=== PATIENT | female | born 1995 | race Caucasian/White ===

== ENCOUNTER 2017-05-03 12:48 | Outpatient (CLI) | payer SELFPAY ==
[2017-05-03 13:13] VITALS: BP 130/83
--- NOTE | 2017-05-03 14:59 | Ultrasound Report ---
ULTRASOUND BIOPHYSICAL PROFILE: History: well being Technique: Transabdominal ultrasound with Doppler interrogation. 2 - breathing movements 2 - movements 2 - posture and tone 2 - Qualitative amniotic fluid volume 8 - TOTAL SCORE OF POSSIBLE 8 Heart Rate (bpm) 140
--- NOTE | 2017-05-04 09:50 | Ultrasound Report ---
OB LIMITED INDICATION: well being. COMPARISON: None similar at this institution. TECHNIQUE: Transabdominal grayscale ultrasound with Doppler interrogation. Gestation: Crump Position: Cephalic Amniotic Fluid: WNL (7-24 cm) DARWIN = 10.8 cm Heart Rate: 153 BPM
== END 2017-05-03 16:24 | disposition home or self-care (01) ==
LOC: TRG 12:48 → LD 12:48 → TRG 16:24
PROVIDERS: ATTEND Obstetrics & Gynecology
DX: O47.1 False labor at or after 37 completed weeks of gestation (principal); Z3A.38 38 weeks gestation of pregnancy
CPT/HCPCS: 59025; 76815; 76819

== ENCOUNTER 2017-05-16 06:43 | Inpatient (IN) | payer SELFPAY ==
[2017-05-16] MEDS ORDERED: PITOCin/NS 20 UNIT/1000ML DRIP 20,000 MILLIUNITS/1,000 ML BAG IV ONE (07:17)
[2017-05-16] MEDS ORDERED: XYLOCAINE 2% INFILTRATI ONE ×2 (07:33→10:00)
[2017-05-16] MEDS: PITOCin/NS 20 UNIT/1000ML DRIP 20 UNITS/1,000 ML BAG IV SCH ×2 (07:34→08:25)
[2017-05-16 07:39] LABS: Hematocrit 37.4 % (30.3-42.9); Hemoglobin 12.8 gm/dl (10.1-14.3); Mean Corpuscular HGB Conc 34 % (30-34); Mean Corpuscular Hemoglobin 29 pg (28-32); Mean Corpuscular Volume 85 fl (79-97); Platelet Count 286 K/mm3 (140-440); Red Cell Distribution Width 15.8 % (13.2-15.2); White Blood Count 17.1 K/mm3 (4.5-11.0)
--- NOTE | 2017-05-16 07:55 | History and Physical Report ---
History of Present Illness Date of examination: 05/16/17 Date of admission: 05/16/17 06:54 Chief complaint: Labor History of present illness: Pt is a 22yo HF EDC 05/13/17; EGA 40 3/7 weeks presents to L&D complaining of RUC's q 3-4 mins and Cx 9/100/V/0 She received care at [facility] since 12 weeks and course has been unremarkable except for an elevated RGS. records are available and GBS unknown. Past History Past Medical History: no pertinent history Past Surgical History: no surgical history Family/Genetic History: none Social history: no significant social history, single - Obstetrical History Expected Date of Delivery: 05/13/17 Actual Gestation: 40 Week(s) 3 Day(s) : 1 Medications and Allergies Allergies Allergy/AdvReac Type Severity Reaction Status Date / Time No Known Allergies Allergy Verified 05/16/17 07:38 Active Meds: Active Medications Oxytocin/Sodium Chloride (Pitocin/Ns 20 Unit/1000ml Drip) 20 units in 1,000 mls @ 125 mls/hr IV DIRECT KRYSTIN Review of Systems All systems: negative - Vital Signs Vital signs: Vital Signs Pulse BP 74 183/100 05/16/17 07:10 05/16/17 07:10 Temp Pulse Resp BP Pulse Ox 88 142/90 05/16/17 07:41 05/16/17 07:41 - Physical Exam Breasts: Positive: deferred Cardiovascular: Regular rate Lungs: Positive: Clear to auscultation Abdomen: Positive: normal appearance Genitourinary (Female): Positive: normal external genitalia Vagina: Positive: normal moisture Uterus: Positive: enlarged Extremities: Positive: normal - Obstetrical FHR: category 1 Uterine Contraction Monitor Mode: External Cervical Dilatation: 9 Cervical Effacement Percentage: 100 station: 0 Uterine Contraction Pattern: Regular Uterine Tone Measurement Phase: Contraction Uterine Contraction Intensity: Strong/Firm Results Result Diagrams: 05/16/17 07:05 Abnormal lab results 05/16/17 Range/Units 07:05 WBC 17.1 H (4.5-11.0) K/mm3 RDW 15.8 H (13.2-15.2) % All other labs normal. Assessment and Plan - Patient Problems (1) 40 weeks gestation of Onset Date: 05/16/17 Current Visit: Yes Status: Acute Plan to address problem: A: IUP @ 40 3/7 weeks in labor Unknown GBS P: Admit to L&D for expectant vaginal delivery IV Ampicillin
--- NOTE | 2017-05-16 08:00 | Procedure Note ---
OB Delivery Note - Delivery Date of Delivery: 05/16/17 Surgeon: SHON HARRINGTON Estimated blood loss: 200cc - Vaginal Delivery presentation: vertex Delivery position: OA Intrapartum events: precipitous labor- <3hr Delivery induction: none Delivery augmentation: rupture of membranes Delivery monitor: external FHT, external uterine Route of delivery: vacuum extraction (1 pull, no pop-offs) Indicators for instrumentation: nonreassuring FHR tracing Delivery placenta: spontaneous Delivery cord: nuchal cord (x1), 3 umbilical vessels Episiotomy: none Delivery laceration: 1st degree (vaginal) Delivery repair: vicryl Anesthesia: local Delivery comments: Infant delivered with the aid of a vacuum, 1 pull, no pop-offs. Nuchal cord x 1 reduced and infant placed on Mom's chest for [id number] bonding and delayed cord clamping. - Infant A at 1 minute: 8 at 5 minutes: 9 Infant Gender: Male (3446gms)
[2017-05-16 08:27] LABS: Basophils % (Manual) 0 % (0.0-1.8); Blastocytes % (Manual) 0 %; Eosinophils % (Manual) 0 % (0.0-4.3)
[2017-05-16 08:28] LABS: Diff Status Complete; Platelet Estimate Cons; RBC Morphology Normal
[2017-05-16] MEDS ORDERED: PITOCin/NS 20 UNIT/1000ML DRIP 20 UNITS/1,000 ML BAG IV SCH ×2 (09:00→09:30)
[2017-05-16] MEDS ORDERED: PITOCin/NS 30 UNIT/500ML 30 UNITS/500 ML BAG IV SCH (09:00)
[2017-05-16] MEDS ORDERED: BENADRYL PO PRN (09:00)
[2017-05-16] MEDS ORDERED: ePHEDrine SULFATE IV PRN (09:00)
[2017-05-16] MEDS ORDERED: APRESOLINE IV ONE (09:00)
[2017-05-16] MEDS ORDERED: TYLENOL PO PRN (09:00)
[2017-05-16] MEDS ORDERED: LACTATED RINGERS 1,000 ML IV SCH (09:30)
[2017-05-16 09:41] LABS: Bilirubin,Urine NEG (Negative); Blood,Urine LG (Negative); Ketones,Urine 20 mg/dL (Negative); Leukocyte Esterase,Urine NEG (Negative); Nitrite,Urine NEG (Negative); Urobilinogen,Urine < 2.0 mg/dL (<2.0)
[2017-05-16 09:43] LABS: Protein,Urine >500 mg/dL (Negative); RBC,Urine > 182.0 /HPF (0.0-6.0); WBC,Urine > 182.0 /HPF (0.0-6.0)
[2017-05-16 09:50] LABS: Alanine Aminotransferase 13 units/L (7-56); Lactate Dehydrogenase 260 units/L (91-180)
[2017-05-16] MEDS ORDERED: DULCOLAX PR PRN (10:00)
[2017-05-16] MEDS ORDERED: PHENERGAN PR PRN (10:00)
[2017-05-16] MEDS ORDERED: ZOFRAN IV PRN (10:00)
[2017-05-16] MEDS ORDERED: PHENERGAN PO PRN (10:00)
[2017-05-16] MEDS ORDERED: LANSINOH TP PRN (10:00)
[2017-05-16] MEDS ORDERED: SODIUM CHLORIDE FLUSH SYRINGE 10 ML IV PRN (10:00)
[2017-05-16] MEDS ORDERED: TUCKS PAD TP PRN (10:00)
[2017-05-16] MEDS ORDERED: BRETHINE IVP PRN (10:00)
[2017-05-16] MEDS ORDERED: BRETHINE SUB-Q PRN (10:00)
[2017-05-16] MEDS: MOTRIN PO SCH ×3 (12:10→23:43)
[2017-05-16] MEDS: FEOSOL PO SCH ×2 (12:10→22:10)
[2017-05-16] MEDS: COLACE PO SCH ×2 (12:10→22:10)
[2017-05-16] MEDS: NORCO 5/325 PO PRN ×2 (12:10→22:09)
[2017-05-16] MEDS: PRENATAL VITAMIN PO SCH (18:49)
[2017-05-16 21:13] LABS: Hematocrit 33.2 % (30.3-42.9); Hemoglobin 11.1 gm/dl (10.1-14.3)
[2017-05-16] MEDS ORDERED: MINERAL OIL PO PRN (22:00)
[2017-05-16] MEDS ORDERED: MILK OF MAGNESIA PO PRN (22:00)
[2017-05-17] MEDS: MOTRIN PO SCH ×4 (05:45→23:37)
[2017-05-17] MEDS ORDERED: BOOSTRIX IM ONE (06:00)
[2017-05-17] MEDS ORDERED: M-M-R II VACCINE SUB-Q ONE (10:00)
--- NOTE | 2017-05-17 10:28 | Progress Note ---
Assessment and Plan A: PP Day #1 Stable P: Follow Routine Orders Depo Provera prior to discharge D/C home today per patient request RTO in 6 Weeks RTO in 1 Week Subjective - Subjective Date of service: 05/17/17 Patient reports: appetite normal, voiding normally, pain well controlled, flatus , ambulating normally : doing well Objective - Vital Signs Latest vital signs: Vital Signs Temp Pulse Resp BP BP Pulse Ox 05/17/17 08:18 85 97 05/17/17 08:17 98.8 F 85 20 113/67 96 05/17/17 07:16 98.6 F 84 18 127/74 95 05/17/17 02:52 98.6 F 77 18 132/80 95 05/16/17 20:00 98.2 F 74 18 127/65 05/16/17 16:49 98.0 F 84 18 135/79 96 05/16/17 11:58 98.7 F 84 20 144/90 84 Intake and Output 05/16/17 05/17/17 05/17/17 22:59 06:59 14:59 Output Total 300 Balance -300 Output: Urine 300 Void 300 Other: Total, Output Amount 300 - Exam Breasts: Present: normal, mass Lungs: Present: Clear to auscultation Abdomen: Present: normal appearance, soft, normal bowel sounds Uterus: Present: normal, firm, fundal height below umbilicus Extremities: Present: normal
--- NOTE | 2017-05-17 10:30 | Discharge Summary ---
Providers - Providers Date of Admission: 05/16/17 06:54 Date of discharge: 05/17/17 Attending physician: ALBERT DUPREE MD Primary care physician: ALBERT DUPREE MD Hospitalization Reason for admission: active labor Delivery: Episiotomy: none Laceration: 2nd degree Incision: normal Other procedures: none complications: none Discharge diagnosis: IUP at term delivered [place] baby: male Condition at discharge: Good Disposition: DC-01 TO HOME OR SELFCARE Plan - Provider Discharge Summary Activity: routine, no sex for 6 weeks, no heavy lifting 4 weeks, no strenuous exercise Diet: routine Instructions: routine Additional instructions: [] Smoking cessation referral if applicable(refer to patient education folder for contact #) [] Refer to [facility]'s [facility] Booklet Call your doctor immediately for: * Fever > 100.5 * Heavy vaginal bleeding ( >1 pad per hour) * Severe persistent headache * Shortness of breath * Reddened, hot, painful area to leg or breast * Drainage or odor from incision. * Keep incision clean and dry at all times and follow doctor's instructions regarding bathing/showering - Follow up plan Follow up: ALBERT DUPREE MD [Primary Care Provider] - 6 Weeks
[2017-05-17] MEDS ORDERED: DEPO-PROVERA (CONTRACEPTION) IM NR (11:30)
[2017-05-17] MEDS ORDERED: Fluarix Quad 2017-2018(36 MOS+) IM ONE (12:00)
[2017-05-17] MEDS: NORCO 5/325 PO PRN ×2 (13:10→18:29)
[2017-05-17] MEDS: FEOSOL PO SCH ×2 (13:10→23:38)
[2017-05-17] MEDS: COLACE PO SCH ×2 (13:10→23:38)
[2017-05-17] MEDS: PRENATAL VITAMIN PO SCH (13:10)
[2017-05-18] MEDS: NORCO 5/325 PO PRN (04:21)
[2017-05-18] MEDS: MOTRIN PO SCH (05:26)
[2017-05-18] MEDS: PRENATAL VITAMIN PO SCH (10:40)
[2017-05-18] MEDS: FEOSOL PO SCH (10:40)
[2017-05-18] MEDS: COLACE PO SCH (10:40)
[2017-05-18 19:07] VITALS: BP 130/72
== END 2017-05-18 12:15 | disposition home or self-care (01) | DRG 775 ==
LOC: TRG 06:43 → LD 06:54 → OB 10:14
PROVIDERS: ADMIT Obstetrics & Gynecology; ATTEND Obstetrics & Gynecology
PROC: 10D07Z6 Extraction of Products of Conception, Vacuum, Via Natural or Artificial Opening (ICD-10-PCS; principal; 2017-05-16)
PROC: 0HQ9XZZ Repair Perineum Skin, External Approach (ICD-10-PCS; 2017-05-16)
PROC: 3E0234Z Introduction of Serum, Toxoid and Vaccine into Muscle, Percutaneous Approach (ICD-10-PCS; 2017-05-17)
DX: O62.3 Precipitate labor (principal); O71.4 Obstetric high vaginal laceration alone; Z37.0 Single live birth; O69.81X0 Labor and delivery complicated by cord around neck, without compression, not applicable or unspecified; Z3A.39 39 weeks gestation of pregnancy; Z23 Encounter for immunization
CPT/HCPCS: 36415; 81001; 82565; 83615; 84450; 84460; 84550; 85007; 85014; 85018; 85025; 86592; 86850; 86900; 86901; 90471; 90686; 90715; 99211; A6250; G0008; G0463; J0360; J1050; J2590